=== PATIENT | female | born 1950 | race Caucasian/White ===

== ENCOUNTER 2016-08-20 08:13 | Emergency (ER) | payer MEDICARE, OTHER ==
[~2016-08-20] VITALS: Wt 78.0 kg
[2016-08-20] MEDS ORDERED: KETOROLAC 30 MG INJ IM STA (08:22)
[2016-08-20] MEDS ORDERED: TRAM50TA2 PO (08:24)
[2016-08-20] MEDS ORDERED: ACYC800T57 PO (08:24)
--- NOTE | 2016-08-20 08:41 | ERD ---
ER Documentation Chief Complaint Date/Time DATE: 08/20/16 TIME: 08:35 Chief Complaint SHINGLES TO LOWER LEG AREA HPI 66 yo female comes in with a rash to her right upper thigh 1 month. Patient states that she was treated with acyclovir, she took it for about a week and she finished it a week ago however she states that she has several new lesions on her right upper thigh. She also took [place] for pain. She describes as a burning pain localized. She denies any fevers or chills. ROS All systems reviewed and are negative except as per history of present illness. Medications Home Meds Active Scripts Acyclovir* (Zovirax*) 800 Mg Tablet, 800 MG PO 5 TIMES DAILY for 7 Days, TAB Prov:HANDY MAI PA-C 08/20/16 Tramadol HCl (Tramadol HCl) 50 Mg Tablet, 50 MG PO Q4 Y for PAIN, #20 TAB Prov:HANDY MAI PA-C 08/20/16 Physical Exam Vitals Vital Signs Date Time Temp Pulse Resp B/P Pulse Ox O2 Delivery O2 Flow Rate FiO2 08/20/16 08:15 98.0 85 18 172/78 99 Physical Exam General: Well-developed, well-nourished. The patient appears in no acute distress. HEENT: Head is normocephalic, atraumatic. No scleral icterus. Neck: Supple. Nontender. Lungs: Clear to auscultation. Normal air movement. Heart: Regular rate and rhythm. S1 and S2 are normal. No murmurs, gallops, or rubs. Abdomen: Nondistended. Extremities: No clubbing or cyanosis. Normal pulses. Moving extremities x 4. No weakness. Neurologic: Alert and oriented 3. No focal deficits. Skin: Erythematous flat lesions that is linear, there are scab-like there are new erythematous lesions that are just inferior Results 24 hrs Current Medications Medications (Trade) Dose Ordered Sig/Shalom Route PRN Reason Start Time Stop Time Status Last Admin Dose Admin Ketorolac Tromethamine (Toradol) 30 mg ONCE STAT IM 08/20/16 08:22 08/20/16 08:23 DC 08/20/16 08:26 Procedures/MDM 66-year-old female comes in with a rash to the upper thigh, there are flat lesions that are scabbed-like, likely from previous vesicular lesions. There are new lesions such as started several days ago just inferior to this, she will be given another week of acyclovir given the new lesion, there is no evidence of any abscess, cellulitis, [place], burn. Patient's blood pressure was elevated (>120/80) but appears stable without evidence of hypertension emergency or urgency. The patient was counseled about the risks of hypertension and urged to pursue outpatient monitoring and therapy within a week with their primary care physician. Departure Diagnosis: Primary Impression: Shingles Condition: Good Patient Instructions: Shingles (Herpes Zoster) Additional Instructions: Llame al doctor MAANA y lanie chary MAE PARA DENTRO DE 1-2 MOONEY.Dgale a la secretaria que nosotros le instruimos hacer esta mae.Avise o llame si torres condicin se empeora antes de la mae. Regresa aqui si peor o no mejor. HANDY MAI PA-C August 20, 2016 08:41
== END 2016-08-20 08:42 | disposition home or self-care (01) ==
LOC: FTE 08:13
DX: B02.9 Zoster without complications (principal)
CPT/HCPCS: 96372; 99284; J1885

== ENCOUNTER 2017-05-27 07:33 | Emergency (ER) | END 2017-05-27 17:21 | disposition home or self-care (01) ==

== ENCOUNTER 2017-09-07 11:20 | Inpatient (IN) | END 2017-09-11 18:30 | disposition home or self-care (01) | DRG 249 ==

== ENCOUNTER 2018-11-04 06:01 | Inpatient (IN) | payer MEDICARE, OTHER ==
[2018-11-04] VITALS (21 sets, daily range): BP systolic 76–148; BP diastolic 47–83; PULSE 66–89; RESP 8–28; Ht 149.9 cm; Wt 80.4 kg
[~2018-11-04] VITALS: Ht 149.9 cm; Wt 80.4 kg
[~2018-11-04 06:01] MED LIST: ASPI81TA52 PO; ATOR20TA38 PO; BENA10TA4 PO; CARV3.1260 PO; CEPH-442 PO; CILO100T PO; FAMO20TA18 PO; FURO-110 PO; GLIP10TA14 PO; LEVO50TA71 PO; METF500T24 PO; PREG150C PO; TICA90TA PO
[2018-11-04] MEDS ORDERED: ACETAMINOPHEN 500 MG TAB PO STA (06:48)
[2018-11-04] MEDS ORDERED: SOD CHLORIDE 0.45% 1,000 ML IV SCH (07:00)
[2018-11-04] MEDS ORDERED: DIAZEPAM 5 MG TAB PO ONE (07:00)
[2018-11-04] MEDS ORDERED: CEFAZOLIN 1 GM/50 ML (PMX) 50 ML IVPB ONE (07:00)
--- NOTE | 2018-11-04 07:07 | PREAC ---
Date/Time of Note Date/Time of Note DATE: 11/04/18 TIME: 07:05 Anesthesia Eval and Record Evaluation Time Pre-Procedure Interview DATE: 11/04/18 TIME: 07:05 Age 68 Sex female NPO: 8 hrs Preoperative diagnosis cardiomyopathy Planned procedure AICD Past Medical History Past Medical History: Includes Cardio: HTN, Dyslipidemia, CAD, PTCA/Stent, CHF, Other (cardiomyopathy; aortic stenosis moderate EF 15-20%) Endo: Diabetes GI: Obesity Heme: Anemia Surgery & Anesthesia Issues No known issue (stents x2) Meds Anticoagulation: No Beta Justin within 24 hr: Yes Active Scripts Cephalexin* (Keflex*) 250 Mg Capsule, 250 MG PO Q8 for 4 Days, #21 CAP Prov:SHANKAR CHILDERS MD 09/11/17 Famotidine* (Famotidine*) 20 Mg Tablet, 20 MG PO DAILY for 30 Days, TAB Prov:SHANKAR CHILDERS MD 09/11/17 Benazepril Hcl* (Benazepril Hcl*) 10 Mg Tablet, 10 MG PO BID for 30 Days, #60 TAB Prov:SHANKAR CHILDERS MD 09/11/17 Ticagrelor* (Brilinta*) 90 Mg Tablet, 90 MG PO BID for 30 Days, #60 TAB Prov:SHANKAR CHILDERS MD 09/11/17 Reported Medications Levothyroxine Sodium* (Levoxyl*) 50 Mcg Tablet, 50 MCG PO BEFORE BREAKFAST, #30 TAB 09/05/17 Atorvastatin Calcium* (Atorvastatin Calcium*) 20 Mg Tablet, 20 MG PO QHS, #30 TAB 09/05/17 Pregabalin* (Lyrica*) 150 Mg Capsule, 150 MG PO BID, CAP 09/05/17 Carvedilol* (Carvedilol*) 3.125 Mg Tablet, 3.125 MG PO BID, #60 TAB 18 Furosemide* (Lasix*) 20 Mg Tablet, 20 MG PO BID, TAB 09/05/17 Glipizide* (Glipizide*) 10 Mg Tablet, 10 MG PO AC BREAKFAST DINNER, TAB 09/05/17 Aspirin (Low Dose Aspirin) 81 Mg Tablet.dr, 81 MG PO DAILY, #30 TAB 09/05/17 Metformin Hcl* (Metformin Hcl*) 500 Mg Tablet, 500 MG PO WITH BREAKFAST DINNE, #60 TAB 09/05/17 Current Medications Sodium Chloride 1,000 ml @ 20 mls/hr Q24H IV ; Start 11/04/18 at 07:00 Cefazolin Sodium 50 ml @ 100 mls/hr MOBILE ARCHITECT ONCE IVPB ; Start 11/04/18 at 07:00; Stop 11/04/18 at 07:29 Meds reviewed: Yes Allergies Coded Allergies: No Known Allergy (Unverified , 11/03/18) Allergies Reviewed: Yes Labs/Studies Labs Reviewed: Reviewed by anesthesiologist Result Diagram: 11/04/18 0617 11/04/18 0617 Laboratory Tests 11/04/18 06:17 test: N/A Studies: ECG (SR, LBBB, St elevation) Pre-procedure Exam Last vitals Vital Signs Date Temp Pulse Resp B/P (MAP) Pulse Ox O2 O2 Flow FiO2 Time Delivery Rate 11/04/18 97.2 80 18 148/83 98 Room Air 06:49 (104) Airway: Adequate mouth opening, Adequate thyromental dist Mallampati: Mallampati II Teeth: Abnormal (dentures removed, edentulous) Lung: Normal Heart: Normal ASA Physical Status ASA physical status: 4 Emergency: None Planned Anesthetic General/MAC: MAC Pre-operative Attestations Prior to commencing anesthesia and surgery, the patient was re-evaluated, there was verification of: *The patient's identity *The results of appropriate recent lab work and preoperative vital signs *The above evaluation not changing prior to induction *Anesthetic plan, risk benefits, alternative and complications discussed with patient/family; questions answered; patient/family understands, accepts and wishes to proceed. Tick Eradicator used HOWIE ASENCIO Nov 04, 2018 07:07
[2018-11-04] MEDS ORDERED: PHENYLephrine (100 MCG/ML) 10ML SYG ONE (07:11)
[2018-11-04] MEDS ORDERED: EPINEPHrine 0.1 MG/ML SYG ONE (07:11)
[2018-11-04] MEDS ORDERED: FENTAnyl 50 MCG/ML VIAL ONE ×2 (07:11→07:35)
[2018-11-04] MEDS ORDERED: EPHEDrine 25 MG/5 ML SYG ONE (07:11)
[2018-11-04] MEDS ORDERED: BUPIVACAINE 0.5% (SDV) 30 ML INJ ONE (07:26)
[2018-11-04] MEDS ORDERED: LIDOCAINE 1%/EPI 30 ML INJ ONE (07:26)
[2018-11-04] MEDS ORDERED: IODIXANOL LOCM 50 ML BTL ONE ×2 (07:26→08:38)
[2018-11-04] MEDS ORDERED: SOD CHLORIDE 0.9% 500 ML ONE (07:26)
[2018-11-04] MEDS ORDERED: hydrALAzine 20 MG INJ IV PRN (07:30)
[2018-11-04] MEDS ORDERED: POLYMYXIN/BACITRACIN 1L IRRIG IRR ONE (07:30)
[2018-11-04] MEDS ORDERED: LABETALOL HCL 20MG INJ IV PRN (07:30)
[2018-11-04] MEDS ORDERED: ATROPINE 1 MG/10 ML SYRINGE IV PRN (07:30)
[2018-11-04] MEDS ORDERED: CEFAZOLIN 2 GM/50 ML (PMX) 50 ML IVPB ONE (07:30)
[2018-11-04] MEDS ORDERED: FENTAnyl 50 MCG/ML VIAL IV PRN (07:30)
[2018-11-04] MEDS ORDERED: ALBUTEROL 0.083% (NEB) 2.5 MG/3 ML AMP HHN PRN (07:30)
[2018-11-04] MEDS ORDERED: EPHEDrine 25 MG/5 ML SYG IV PRN (07:30)
[2018-11-04] MEDS ORDERED: DIPHENHYDRAMINE 50 MG INJ IV PRN (07:30)
--- NOTE | 2018-11-04 10:24 | PAC ---
Date/Time of Note Date/Time of Note DATE: 11/04/18 TIME: 10:23 Post-Anesthesia Notes Post-Anesthesia Note Last documented vital signs Vital Signs Date Temp Pulse Resp B/P Pulse Ox O2 O2 Flow FiO2 Time (MAP) Delivery Rate 11/04/18 97.2 99/7 80 88 18 18 148/83 98 100 Room 06:49 100 1 (104) 99 Air NC 2L Activity: WNL Respiratory function: WNL Cardiovascular function: WNL Mental status: Baseline Pain reasonably controlled: Yes Hydration appropriate: Yes Nausea/Vomiting absent: Yes HOWIE ASENCIO Nov 04, 2018 10:24
[2018-11-04] MEDS ORDERED: DEXTROSE 5%-0.45% NACL 1,000 ML IV SCH (10:52)
[2018-11-04] MEDS ORDERED: HYDROCODONE/APAP (5/325) TAB PO PRN (11:00)
[2018-11-04] MEDS ORDERED: MAGNESIUM HYDROXIDE 30ML CUP PO PRN (11:00)
[2018-11-04] MEDS ORDERED: ONDANSETRON 4 MG INJ IV PRN (11:00)
[2018-11-04] MEDS ORDERED: NACL 0.9% 3 ML SYG IV SCH (11:00)
[2018-11-04] MEDS ORDERED: ACETAMINOPHEN 325 MG TAB PO PRN (11:00)
--- NOTE | 2018-11-04 11:12 | QN ---
Documentation Comment PT SEEN AND EXAMINED SHANKAR CHILDERS MD Nov 04, 2018 11:12
--- NOTE | 2018-11-04 11:16 | SP ---
DATE OF PROCEDURE: 11/04/2018 REFERRING PHYSICIAN: Dr. Vasquez and Dr. Barry. REASON FOR IMPLANTATION: Ischemic cardiomyopathy with ejection fraction less than 30%, congestive he art failure with a class 2 heart failure on optimal medical management. There is no reversible disea se. The patient was referred to me for ICD implantation. The patient was seen in the office and the n scheduled for outpatient ICD. DESCRIPTION OF PROCEDURE: After discussion with the patient and family, she was brought in fas ting condition. Anesthesiologist supervised airway and sedation. The patient received Ancef prior t o the procedure. Left side of the chest was prepped and draped in a usual sterile fashion, 1% lidoca ine was placed for general analgesia. After the initial incision, we encountered some bleeding now. Attempts were made to stop the bleeding, which were initially successful. Upper extremity venogram was performed with IV contrast of 10 mL x2. Then, using modified Seldinger technique, subclavian vei n was cannulated. There was some kinking in the vein and we had to upgrade to the larger sheath. On ce appropriate of the large sheath. The wire went easily and was implanted into RV apex. It was act ively fixed. The lead was left inside the lead and sheath was peeled away. The lead was sutured to the muscle with 0 Vicryl Ethibond sutures. The lead was attached to the generator. At that point, I realized that there is some bleeding in the pocket which was continuous. I tried to locate the sour ce of the pocket after exploratory discovery, I was unable to duplicate a focal social bleeding and d ecision was made to close the pocket. At that time, estimated blood loss was probably 1 to 1.5 units . The patient appeared to be hemodynamically stable. I called Dr. Power for an opinion whether a surgical intervention is warranted, but after discussion with Dr. Power, it was felt that the b est course of action is just to close the pocket and allow it to tamponade by itself. The skin was c losed with multiple layers of 2-0 Vicryl sutures. Steri-Strips were placed on top of the incision. The patient remained on the cath table for optimization. At that point, she became hypotensive with blood pressure in the 70s. Rufus hampton was called, but the patient never lost control of the airway. She is saturating 100%. The course of bleeding was presumed to be in the pocket. Urgent blood trans fusion was requested. I put a central line in for right femoral vein and blood transfusion was initi ated. The patient appears to be stable at the moment. I discussed the situation with the family, th ey are aware that the patient had likely bleeding as a complication of her procedure. Currently, the plan is to transfer patient to ICU for monitoring. She is going to have stat laboratories to check her hemoglobin level with a blood transfusion and monitor expectantly. I will ask Dr. Power to s ee the patient again to see if she needs exploratory surgery to look for the source of bleeding. I a m still hopeful that it will tamponade by itself DEVICE INFORMATION: 1. The implanted device is a [employer] Fort[employer] VR device 1357 40 q. ICD. The RV lead is a [employer] lead burner helper #[id number], necessary lead #[id number]. Reference #[id number] 58 cm lead tracking #[id number]. 2. Acute threshold R-wave was 10 millivolts, threshold 1.0 volts at 0.5 msec, lead impedance 256. S hock impedance 62 ohms. The device was not tested. 3. Complications. See discussion above. Dictated By: PARVIZ DELCID MD ML/NTS Conf#: [id number] DID#: [id number] CC: JESUSITA VASQUEZ MD; SHIVAM BARRY MD;*End*
[2018-11-04] MEDS ORDERED: DEXTROSE 50% 50 ML SYRINGE IV PRN ×2 (11:30)
[2018-11-04] MEDS ORDERED: GLUCAGON 1 MG INJ IM PRN (11:30)
[2018-11-04] MEDS ORDERED: GLUCOSE GEL 15 GRAM TUBE BUCCAL PRN (11:30)
[2018-11-04] MEDS ORDERED: GLUCOSE GEL 15 GRAM TUBE PO PRN ×2 (11:30)
[2018-11-04] MEDS: INSULIN ASPART [NOVOLOG] 3 ML PEN SC SCH ×3 (12:56→20:53)
[2018-11-04] MEDS: SOD CHLORIDE 0.45% 1,000 ML IV SCH (13:05)
--- NOTE | 2018-11-04 15:06 | RADRPT ---
Vent Rate: 78 bpm RR Interval: 768 msec MN Interval: 167 msec QRS Duration: 164 msec QT Interval: 446 msec QTC Interval: 509 msec P-R-T [place]: 70 - -14 - 156 degrees Sinus rhythm...normal P axis, V-rate 50- 99 Left bundle branch block...QRSd>120, broad/notched R ST elevation secondary to IVCD...Multiple VCG criteria Electronically Signed By: Giacomo Gonzalez
--- NOTE | 2018-11-04 15:25 | RADRPT ---
Echocardiogram Report Patient Name: ANN HOYTPatient ID: [id number] : 1950 (68y 6m)Study Date: 11/04/2018 12:02:43 PM Gender: FAccession #: [id number] Tech: DianeLexi Guzman [facility] Location: 112 Ref.Physician: PARVIZ DELCID Height(Cm): BSA: Weight(Kg): Quality: AdequateOrder Physician: PARVIZ DELCID Account #: Procedures: Echocardiographic Report: Transthoracic echocardiogram with complete 2D, M-Mode, and doppler examination. Indications: post ICD low BP r/o effusion. Measurements: 2D/M Mode Doppler Measurement Value Normal Range Measurement Value Normal Range LVIDd 2D 3.7 [ 3.8 - 5.2 ] cm AV Peak Aj 1.6 [ 100.0 - 170.0 ] cm/sec LVIDs 2D 3.5 [ 2.2 - 3.5 ] cm AV Peak PG 10.0 [ 2.0 - 9.0 ] mmHg LVPWd 2D 1.2 [ 0.6 - 0.9 ] cm LVOT Peak Aj 0.9 [ 70.0 - 110.0 ] cm/sec IVSd 2D 1.3 [ 0.6 - 0.9 ] cm LVOT Peak PG 3.0 [ 2.0 - 6.0 ] mmHg AoR Diam 2D 2.8 [ 2.3 - 3.1 ] cm Lat E` Aj 0.1 [ 10.0 - 15.0 ] cm/sec EDV 2D 58.1 [ 46.0 - 106.0 ] ml ESV 2D 52.3 [ 14.0 - 42.0 ] ml EF 2D 10.0 [ 54.0 - 74.0 ] percent LA Dimen 2D 2.8 [ 2.7 - 3.8 ] cm Findings: Left Ventricle: Normal left ventricular cavity size. Mild concentric left ventricular hypertrophy. Moderate global left ventricular systolic dysfunction. Ejection fraction is visually estimated at 30 %. Right Ventricle: Normal right ventricular size. Normal right ventricular systolic function. Linear artifact in right ventricle suggestive of catheter, pacer lead, or ICD lead. Left Atrium: The left atrium is normal in size. Right Atrium: The right atrium is normal in size. Mitral Valve: Normal appearance and function of the mitral valve with trace physiologic regurgitation. Aortic Valve: No hemodynamically significant aortic stenosis by doppler. Aortic cusps appear mildly calcified. Mild aortic valve regurgitation. Tricuspid Valve: Normal appearance and function of the tricuspid valve with trace physiologic regurgitation. Normal right ventricular systolic pressure. Pulmonic Valve: Normal pulmonic valve appearance. Pericardium: Normal pericardium with no significant pericardial effusion. Aorta: Normal aortic root. IVC: Normal size and normal respiratory collapse consistent with normal right atrial pressure. Conclusions: Normal left ventricular cavity size. Mild concentric left ventricular hypertrophy. Moderate to severe global left ventricular systolic dysfunction. Ejection fraction is visually estimated at 30 %. Normal appearance and function of the mitral valve with trace physiologic regurgitation. No hemodynamically significant aortic stenosis by doppler. Aortic cusps appear mildly calcified. Mild aortic valve regurgitation. Normal appearance and function of the tricuspid valve with trace physiologic regurgitation. Normal right ventricular systolic pressure. Electronically Signed By: Abraham Vasquez 2018-11-04 15:25:13 PDT
--- NOTE | 2018-11-04 15:45 | HP ---
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 HISTORY OF PRESENTING ILLNESS: This is a 68-year-old female with a past medical history of diabetes, hypertension, hyperlipidemia, hypothyroidism, history of coronary artery disease, status post stenting of LAD and RCA in 08/2017. The patient was followed by Dr. Vasquez and Dr. Delcid as an outpatient. The patient's EF was 15% to 20% and was scheduled for AICD today. According to the family, the patient had aspirin and Brilinta. Yesterday, the patient went into procedure. Around 7:30 on admission, the blood pressure was 160s over 80s; however around 9:30, the blood pressure dropped to systolic of 80s. There was active bleeding seen. The patient received Tino-Synephrine, ephedrine. Central line was placed in the right groin by Dr. Delcid. The patient had 1200 mL of fluid and also received PRBCs x2 and was transferred to ICU. From there, blood pressure was 99/71. Currently, patient is awake, alert, oriented. Systolic blood pressure is in 100 and there is no active oozing noted on the AICD site. Hemoglobin had dropped from 10 to 8.1 at 9:25. At that time, she had received 2 units of blood. PAST MEDICAL HISTORY: 1. Diabetes. 2. Hypertension. 3. Hyperlipidemia. 4. Arthritis. 5. Hypothyroidism. ALLERGIES: NONE. MEDICATIONS TAKING AT HOME: 1. Aspirin 81. 2. Brilinta 90 b.i.d. 3. Cilostazol 50 b.i.d. 4. Keflex 20 q.8. 5. Atorvastatin 20. 6. Benazepril 10 b.i.d. 7. Coreg 3.125 b.i.d. 8. Lyrica 150 b.i.d. 9. Lasix 20 b.i.d. 10. Pepcid. 11. Glipizide 10 mg p.o. breakfast. 12. Levothyroxine 50. 13. Metformin 500 p.o. with breakfast and dinner. PAST SURGICAL HISTORY: The patient just had stenting of LAD and RCA in 2018. SOCIAL HISTORY: No history of smoking, alcohol or any drug use. Currently lives with family. REVIEW OF SYSTEMS: The patient denies any chest pain, any shortness of breath, any dizziness; completely awake, alert, oriented. Denies any abdominal pain, nausea, vomiting, diarrhea, headache, any blurry vision. Denies any focal neurological deficit. PHYSICAL EXAMINATION: VITAL SIGNS: Currently, blood pressure is 123/72, afebrile, pulse 89, respirations 16, saturating 99%. GENERAL: The patient is awake, alert, oriented, does not appear to be any acute distress. HEENT: Pupils are equal, round, reactive to light. NECK: Supple. HEART: Regular rate and rhythm. LUNGS: Clear to auscultate bilaterally. ABDOMEN: Soft, nontender, nondistended, positive normoactive bowel sounds. EXTREMITIES: No clubbing, cyanosis or edema. SKIN: The patient has some bruises. In left chest wall, the patient has compression banding; however, no active oozing seen. LABORATORY DATA: Hemoglobin of 10 at 6:17 and 8.1 on 9:25. BUN of 46, creatinine 1.52. INR of 0.89. DIAGNOSTIC DATA: Chest x-ray initial was negative. Mild cardiomegaly without congestive heart failure and repeat chest x-ray was done after the procedure that did not show much heart failure. ASSESSMENT AND PLAN: 1. This is a 68-year-old female status post code blue; however, the patient did not receive any CPR and was never intubated. The patient went into shock, likely secondary to hemorrhagic; however, now status post adequate fluid resuscitation and 2 units of blood. Hemoglobin had dropped from 10 to 8.1 and the patient has received 2 units of blood. Currently, the patient is hemodynamically stable. 2. Diabetes. 3. Hypertension. 4. Chronic kidney disease. 5. Hyperlipidemia. 6. Peripheral neuropathy. 7. 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 8. Peripheral neuropathy. 9. History of urinary tract infection. 10. History of congestive heart failure. PLAN: At this period of time, the patient is admitted to ICU. We will check stat H and H and we will check H and H q.6 hours. We will get 2 units of blood ready. Dr. Power has already been consulted by Dr. Delcid. He will come and evaluate the patient. Obviously, blood thinners will be on hold. The patient will be on n.p.o. We will continue the patient on insulin sliding scale. Rest of the treatment will depend on the patient's hospitalization course. Dictated By: SHANKAR GUERRIER/AASHISH Conf#: [id number] DID#: [id number] CC: NATALIE POWER MD; PARVIZ DELCID MD;*EndCC* MTDD
--- NOTE | 2018-11-04 17:38 | CONS ---
DATE OF ADMISSION: 11/04/2018 DATE OF CONSULTATION: 11/04/2018 REASON FOR CONSULTATION: Evaluation of left chest bleeding. HISTORY OF PRESENT ILLNESS: This is a 68-year-old female who underwent a defibrillator placement tod ay. Subsequently, she was found to have bleeding from the left chest. Her hemoglobin dropped from 1 0.1 to 8.1. She is now back up to 9.7 after blood transfusion, hemodynamically has been stable with blood pressure of 110/65, pulse is 69, respirations 18 and saturation is 100% on room air. Pressure dressing has been applied. PAST MEDICAL HISTORY: Hypertension, hyperlipidemia, peripheral vascular disease. PAST SURGICAL HISTORY: As above. ALLERGIES: NONE. SOCIAL HISTORY: No smoking, drinking or drug use. MEDICATION LIST: Reviewed. PHYSICAL EXAMINATION: VITAL SIGNS: Blood pressure is 118/60, pulse is 60, respirations 18. HEENT: Normocephalic, atraumatic, PERRLA. NECK: Supple. No JVD, no carotid bruits. CARDIOVASCULAR: Normal S1, S2. No murmurs, gallops or rubs. LUNGS: Clear to auscultation. ABDOMEN: Soft. EXTREMITIES: Warm. CHEST: Left chest wall has a pressure dressing over the newly placed defibrillator. EXTREMITIES: There is radial pulse. No signs of active bleeding. There are femoral pulses. No pop liteal or pedal pulses at the present time. Capillary refill is about 3 seconds. IMPRESSION: Left chest bleeding after defibrillator. RECOMMENDATIONS: We will monitor the hemoglobin level. Keep the pressure dressings applied. Monito r the left chest. I discuss with the referring physician. Dictated By: NATALIE CHÁVEZ MD FM/NTS Conf#: [id number] DID#: [id number] CC: SHANKAR CHILDERS; PARVIZ DELCID MD;*EndCC*
[2018-11-05] VITALS (24 sets, daily range): BP systolic 106–139; BP diastolic 54–78; PULSE 67–89; RESP 11–22
[2018-11-05] MEDS: INSULIN ASPART [NOVOLOG] 3 ML PEN SC SCH ×6 (01:00→21:11)
[2018-11-05] MEDS: ACCU-CHEK XX SCH ×6 (01:29→21:11)
[2018-11-05] MEDS ORDERED: ACCU-CHEK XX SCH (02:00)
[2018-11-05] MEDS: PANTOPRAZOLE (EC) 40 MG TAB PO SCH (05:12)
--- NOTE | 2018-11-05 11:01 | PN ---
Date/Time of Note Date/Time of Note DATE: 11/05/18 TIME: 10:53 Assessment/Plan VTE Prophylaxis Risk score (from Ns)>0 risk: 11 SCD applied (from Ns): Yes Pharmacological prophylaxis: NA/contraindicated Pharm contraindication: low risk/ambulating Lines/Catheters IV Catheter Type (from Nrs): Central Line Central line still needed: Yes Urinary Cath still in place: Yes Reason Cath still needed: urinary retention Assessment/Plan Assessment/Plan . This is a 68-year-old female 1status post code blue during the time of AICD placement; however, the patient did not receive any CPR and was never intubated. The patient went into shock during the procedure with the blood pressure dropped from systolic 170s to 80s, likely secondary to hemorrhagic; however, now status post adequate fluid resuscitation and 2 units of blood status post Tino-Synephrine and epi. Hemoglobin had dropped from 10 to 8.1 and the patient has received 2 units of blood. Currently, the patient is hemodynamically stable. Now with hematoma, hemoglobin has been stable 2. Diabetes. 3. Hypertension. 4. Chronic kidney disease. 5. Hyperlipidemia. 6. Peripheral neuropathy. 7. 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 8. Peripheral neuropathy. 9. History of urinary tract infection. 10. History of congestive heart failure. plan -Hemoglobin is stable today and patient is hemodynamically stable, pressure dressing was changed by Manager Finance -Start on 1800 ADA diet,spoke to Dr. Montemayor -Patient is better went to put back her on aspirin and Brilinta however patient had stents and is comp completed almost 1 year > does she need Brilinta? - ISS - Transfer to tele if okay with cardiology - resume some home meds Result Diagram: 11/05/18 0400 11/05/18 0400 Results 24hrs Laboratory Tests Test 11/04/18 11:20 11/04/18 12:51 11/04/18 17:20 11/04/18 18:26 Hemoglobin 9.7 L 10.2 L Hematocrit 29.2 L 30.5 L Bedside Glucose 222 H 110 Test 11/04/18 20:52 11/05/18 00:21 11/05/18 01:23 11/05/18 04:00 Bedside Glucose 118 138 Hemoglobin 10.0 L 9.9 L Hematocrit 29.6 L 30.3 L White Blood Count 8.4 # Red Blood Count 3.62 L Mean Corpuscular 83.7 Volume Mean Corpuscular 27.3 L Hemoglobin Mean Corpuscular 32.7 Hemoglobin Concent Red Cell 15.2 H Distribution Width Platelet Count 220 Mean Platelet 11.1 H Volume Immature 0.400 Granulocytes % Neutrophils % 68.4 Lymphocytes % 21.7 Monocytes % 7.2 Eosinophils % 1.7 Basophils % 0.6 Nucleated Red Blood 0.0 Cells % Immature 0.030 Granulocytes # Neutrophils # 5.7 Lymphocytes # 1.8 Monocytes # 0.6 Eosinophils # 0.1 Basophils # 0.1 Nucleated Red Blood 0.0 Cells # Sodium Level 139 Potassium Level 4.1 Chloride Level 110 Carbon Dioxide 23 Level Anion Gap 6 Blood Urea Nitrogen 31 #H Creatinine 1.13 H Est Glomerular 48 L Filtrat Rate mL/min Glucose Level 142 Calcium Level 8.4 Phosphorus Level 4.0 Magnesium Level 2.0 Test 11/05/18 04:27 11/05/18 05:12 11/05/18 08:04 Bedside Glucose 145 181 Lab Scanned Report BLOOD TRANSFUSION Subjective 24 Hr Interval Summary Free Text/Dictation Patient feels well. Globin stayed stable Pressure dressing was done today as has big hematoma under left armpit Exam/Review of Systems Exam Vitals Vital Signs Date Temp Pulse Resp B/P (MAP) Pulse Ox O2 O2 Flow FiO2 Time Delivery Rate 11/05/18 97.7 75 14 126/65 98 Room Air 08:00 (85) Intake and Output 11/04/18 11/04/18 11/05/18 1515:00 23:00 07:00 IntakeIntake Total 80 ml 120 ml 160 ml OutputOutput Total 500 ml 530 ml 515 ml BalanceBalance -420 ml -410 ml -355 ml Exam GENERAL: The patient is awake, alert, oriented, does not appear to be any acute distress. HEENT: Pupils are equal, round, reactive to light. NECK: Supple. HEART: Regular rate and rhythm. LUNGS: Clear to auscultate bilaterally. ABDOMEN: Soft, nontender, nondistended, positive normoactive bowel sounds. EXTREMITIES: No clubbing, cyanosis or edema. SKIN: The patient has some bruises. In left chest wall, the patient has compression banding; however, no active oozing seen. Hematoma Results Results 24hrs Laboratory Tests Test 11/04/18 11:20 11/04/18 12:51 11/04/18 17:20 11/04/18 18:26 Hemoglobin 9.7 L 10.2 L Hematocrit 29.2 L 30.5 L Bedside Glucose 222 H 110 Test 11/04/18 20:52 11/05/18 00:21 11/05/18 01:23 11/05/18 04:00 Bedside Glucose 118 138 Hemoglobin 10.0 L 9.9 L Hematocrit 29.6 L 30.3 L White Blood Count 8.4 # Red Blood Count 3.62 L Mean Corpuscular 83.7 Volume Mean Corpuscular 27.3 L Hemoglobin Mean Corpuscular 32.7 Hemoglobin Concent Red Cell 15.2 H Distribution Width Platelet Count 220 Mean Platelet 11.1 H Volume Immature 0.400 Granulocytes % Neutrophils % 68.4 Lymphocytes % 21.7 Monocytes % 7.2 Eosinophils % 1.7 Basophils % 0.6 Nucleated Red Blood 0.0 Cells % Immature 0.030 Granulocytes # Neutrophils # 5.7 Lymphocytes # 1.8 Monocytes # 0.6 Eosinophils # 0.1 Basophils # 0.1 Nucleated Red Blood 0.0 Cells # Sodium Level 139 Potassium Level 4.1 Chloride Level 110 Carbon Dioxide 23 Level Anion Gap 6 Blood Urea Nitrogen 31 #H Creatinine 1.13 H Est Glomerular 48 L Filtrat Rate mL/min Glucose Level 142 Calcium Level 8.4 Phosphorus Level 4.0 Magnesium Level 2.0 Test 11/05/18 04:27 11/05/18 05:12 11/05/18 08:04 Bedside Glucose 145 181 Lab Scanned Report BLOOD TRANSFUSION Medications Medication Current Medications IV Flush (NS 3 ml) 3 ml PER PROTOCOL IV ; Start 11/04/18 at 11:00 Ondansetron HCl (Zofran Inj) 4 mg Q6H PRN IV NAUSEA/VOMITING; Start 11/04/18 at 11:00 Acetaminophen (Tylenol Tab) 650 mg Q6H PRN PO .PAIN 1-3 OR TEMP; Start 11/04/18 at 11:00 Acetaminophen/ Hydrocodone Bitart ([place] (5/325)) 1 tab Q6H PRN PO .MOD PAIN 4- 6; Start 11/04/18 at 11:00 Magnesium Hydroxide (Milk Of Mag) 30 ml DAILY PRN PO .CONSTIPATION; Start 11/04/18 at 11:00 Pantoprazole (Protonix Tab) 40 mg DAILY@06 PO Last administered on 11/05/18at 05:12; Admin Dose 40 MG; Start 11/05/18 at 06:00 Diagnostic Test (Pha) (Accu-Chek) 1 ea Q4 XX Last administered on 11/05/18at 04:36; Admin Dose 1 EA; Start 11/05/18 at 02:00 Miscellaneous Information 1 ea NOTE XX ; Start 11/04/18 at 11:30 Glucose (Glutose) 15 gm Q15M PRN PO DECREASED GLUCOSE; Start 11/04/18 at 11:30 Glucose (Glutose) 22.5 gm Q15M PRN PO DECREASED GLUCOSE; Start 11/04/18 at 11:30 Dextrose (D50w Syringe) 25 ml Q15M PRN IV DECREASED GLUCOSE; Start 11/04/18 at 11:30 Dextrose (D50w Syringe) 50 ml Q15M PRN IV DECREASED GLUCOSE; Start 11/04/18 at 11:30 Glucagon (Glucagen) 1 mg Q15M PRN IM DECREASED GLUCOSE; Start 11/04/18 at 11:30 Glucose (Glutose) 15 gm Q15M PRN BUCCAL DECREASED GLUCOSE; Start 11/04/18 at 11:30 Sodium Chloride 1,000 ml @ 20 mls/hr Q24H IV Last administered on 11/04/18at 13:05; Admin Dose 20 MLS/HR; Start 11/04/18 at 13:30 Insulin Aspart (Novolog Insulin Pen) NOVOLOG *MILD* ALGORI... Q4 SC Last administered on 11/05/18at 08:21; Admin Dose 2 UNIT; Start 11/04/18 at 21:00 SHANKAR CHILDERS MD Nov 05, 2018 11:01
--- NOTE | 2018-11-05 11:09 | CONS ---
Assessment/Plan Assessment/Plan Hospital Course (Demo Recall) IMP: 1.POD#1 s/p ICD implant c/b bleeding 2. anemia requiring transfusions s/p x 2 yesterday 3.Cardiomyopathy-EF 30% by echo this admit 4. CHF-systolic chronic 5.HTN 6.HL 7. Renal insuff 8. PTCA/stent 09/16 with ELIAZAR to LAD/RCA Recc: -ICU but ok for tele if remains HD stable -Contineu lasix -Resume ACEI -Follow HGB closely -Hold asa/brilinta Consultation Date/Type/Reason Admit Date/Time Nov 04, 2018 at 10:56 Initial Consult Date 11/04/18 Type of Consult Cardiology Reason for Consultation cardiomyopathy s/p ICD Requesting Provider: SHANKAR CHILDERS MD Date/Time of Note DATE: 11/05/18 TIME: 11:03 Exam/Review of Systems Vital Signs Vitals Vital Signs Date Temp Pulse Resp B/P (MAP) Pulse Ox O2 O2 Flow FiO2 Time Delivery Rate 11/05/18 97.7 75 14 126/65 98 Room Air 08:00 (85) Intake and Output 11/04/18 11/04/18 11/05/18 1515:00 23:00 07:00 IntakeIntake Total 80 ml 120 ml 160 ml OutputOutput Total 500 ml 530 ml 515 ml BalanceBalance -420 ml -410 ml -355 ml Exam Exam Review of Systems: CONSTITUTIONAL: No fevers, chills. PULMONARY: No sob CARDIOVASCULAR:mild pain at ICD site GASTROINTESTINAL: No nausea/vomiting. GENITOURINARY: No hematuria/dysuria. MUSCULOSKELETAL: No myagias/arthalgias. PSYCHIATRIC: The patient denies depression. NEUROLOGIC: No weakness Constitutional: alert Psych: no complaints Head: normocephalic ENMT: mucosa pink and moist Neck: supple, jvd (9 cm water) Respiratory: clear to auscultation Cardiovascular: regular rate and rhythm, other (L upper chest covered by pressure dressing) Gastrointestinal: soft, non-tender Musculoskeletal: muscle tone (normal) Extremities: edema (none) Labs Result Diagram: 11/05/18 0400 11/05/18 0400 Results 24hrs Laboratory Tests Test 11/04/18 11:20 11/04/18 12:51 11/04/18 17:20 11/04/18 18:26 Hemoglobin 9.7 L 10.2 L Hematocrit 29.2 L 30.5 L Bedside Glucose 222 H 110 Test 11/04/18 20:52 11/05/18 00:21 11/05/18 01:23 11/05/18 04:00 Bedside Glucose 118 138 Hemoglobin 10.0 L 9.9 L Hematocrit 29.6 L 30.3 L White Blood Count 8.4 # Red Blood Count 3.62 L Mean Corpuscular 83.7 Volume Mean Corpuscular 27.3 L Hemoglobin Mean Corpuscular 32.7 Hemoglobin Concent Red Cell 15.2 H Distribution Width Platelet Count 220 Mean Platelet 11.1 H Volume Immature 0.400 Granulocytes % Neutrophils % 68.4 Lymphocytes % 21.7 Monocytes % 7.2 Eosinophils % 1.7 Basophils % 0.6 Nucleated Red Blood 0.0 Cells % Immature 0.030 Granulocytes # Neutrophils # 5.7 Lymphocytes # 1.8 Monocytes # 0.6 Eosinophils # 0.1 Basophils # 0.1 Nucleated Red Blood 0.0 Cells # Sodium Level 139 Potassium Level 4.1 Chloride Level 110 Carbon Dioxide 23 Level Anion Gap 6 Blood Urea Nitrogen 31 #H Creatinine 1.13 H Est Glomerular 48 L Filtrat Rate mL/min Glucose Level 142 Calcium Level 8.4 Phosphorus Level 4.0 Magnesium Level 2.0 Test 11/05/18 04:27 11/05/18 05:12 11/05/18 08:04 Bedside Glucose 145 181 Lab Scanned Report BLOOD TRANSFUSION Medications Medications Current Medications IV Flush (NS 3 ml) 3 ml PER PROTOCOL IV ; Start 11/04/18 at 11:00 Ondansetron HCl (Zofran Inj) 4 mg Q6H PRN IV NAUSEA/VOMITING; Start 11/04/18 at 11:00 Acetaminophen (Tylenol Tab) 650 mg Q6H PRN PO .PAIN 1-3 OR TEMP; Start 11/04/18 at 11:00 Acetaminophen/ Hydrocodone Bitart ([place] (5/325)) 1 tab Q6H PRN PO .MOD PAIN 4- 6; Start 11/04/18 at 11:00 Magnesium Hydroxide (Milk Of Mag) 30 ml DAILY PRN PO .CONSTIPATION; Start 11/04/18 at 11:00 Pantoprazole (Protonix Tab) 40 mg DAILY@06 PO Last administered on 11/05/18at 05:12; Admin Dose 40 MG; Start 11/05/18 at 06:00 Diagnostic Test (Pha) (Accu-Chek) 1 ea Q4 XX Last administered on 11/05/18at 04:36; Admin Dose 1 EA; Start 11/05/18 at 02:00 Miscellaneous Information 1 ea NOTE XX ; Start 11/04/18 at 11:30 Glucose (Glutose) 15 gm Q15M PRN PO DECREASED GLUCOSE; Start 11/04/18 at 11:30 Glucose (Glutose) 22.5 gm Q15M PRN PO DECREASED GLUCOSE; Start 11/04/18 at 11:30 Dextrose (D50w Syringe) 25 ml Q15M PRN IV DECREASED GLUCOSE; Start 11/04/18 at 11:30 Dextrose (D50w Syringe) 50 ml Q15M PRN IV DECREASED GLUCOSE; Start 11/04/18 at 11:30 Glucagon (Glucagen) 1 mg Q15M PRN IM DECREASED GLUCOSE; Start 11/04/18 at 11:30 Glucose (Glutose) 15 gm Q15M PRN BUCCAL DECREASED GLUCOSE; Start 11/04/18 at 11:30 Sodium Chloride 1,000 ml @ 20 mls/hr Q24H IV Last administered on 11/04/18at 13:05; Admin Dose 20 MLS/HR; Start 11/04/18 at 13:30 Insulin Aspart (Novolog Insulin Pen) NOVOLOG *MILD* ALGORI... Q4 SC Last administered on 11/05/18at 08:21; Admin Dose 2 UNIT; Start 11/04/18 at 21:00 Atorvastatin Calcium (Lipitor) 20 mg QHS PO ; Start 11/05/18 at 21:00; Status UNV Furosemide (Lasix) 20 mg BID PO ; Start 11/05/18 at 21:00; Status UNV Levothyroxine Sodium (Synthroid) 50 mcg BEFORE BREAKFAST PO ; Start 11/06/18 at 07:00; Status UNV Pregabalin (Lyrica) 150 mg BID PO ; Start 11/05/18 at 21:00; Status UNV JESUSITA DURON Nov 05, 2018 11:09
[2018-11-05] MEDS ORDERED: hydrALAzine 20 MG INJ IV PRN (11:30)
[2018-11-05] MEDS: PREGABALIN 75 MG CAP PO SCH ×2 (12:53→21:08)
[2018-11-05] MEDS: LEVOTHYROXINE 50 MCG TAB PO SCH (12:53)
[2018-11-05] MEDS: FUROSEMIDE 20 MG TAB PO SCH ×2 (12:54→19:49)
[2018-11-05] MEDS: SOD CHLORIDE 0.45% 1,000 ML IV SCH (12:58)
--- NOTE | 2018-11-05 14:27 | PN ---
Date/Time of Note Date/Time of Note DATE: 11/05/18 TIME: 14:26 Assessment/Plan Lines/Catheters IV Catheter Type (from Nrsg): Central Line [place] in Place (from Nrsg): Yes Assessment/Plan Assessment/Plan Status post defibrillator placement with pocket bleeding Patient hemodynamically stable with stable hemoglobin at 9.7 No signs of active bleeding Monitor the chest site and hemoglobin levels Subjective 24 Hr Interval Summary Constitutional: improved Pain Control: mild Exam/Review of Systems Vital Signs Vitals Vital Signs Date Temp Pulse Resp B/P (MAP) Pulse Ox O2 O2 Flow FiO2 Time Delivery Rate 11/05/18 97.8 75 13 125/69 97 Room Air 12:00 (87) Intake and Output 11/04/18 11/04/18 11/05/18 1515:00 23:00 07:00 IntakeIntake Total 80 ml 120 ml 160 ml OutputOutput Total 500 ml 530 ml 515 ml BalanceBalance -420 ml -410 ml -355 ml Exam Eyes: nl conjunctiva, EOMI, nl lids, nl sclera ENMT: nl external ears & nose, nl lips & teeth, nl nasal mucosa & septum, mucosa pink and moist Neck: supple, non-tender Respiratory: clear to auscultation, normal air movement Cardiovascular: regular rate and rhythm, nl pulses Gastrointestinal: soft, nl liver, spleen, non-tender Musculoskeletal: nl extremities to inspection, nl gait and stance Results Result Diagram: 11/05/18 1153 11/05/18 0400 NATALIE CHÁVEZ MD Nov 05, 2018 14:27
[2018-11-05] MEDS: ATORVASTATIN 20 MG TAB PO SCH (21:07)
[2018-11-06] MEDS: INSULIN ASPART [NOVOLOG] 3 ML PEN SC SCH ×6 (01:15→20:26)
[2018-11-06] MEDS: ACCU-CHEK XX SCH ×8 (01:16→21:00)
[2018-11-06 03:52] VITALS: BP 129/69; PULSE 88; RESP 20
[2018-11-06] MEDS: FUROSEMIDE 20 MG TAB PO SCH ×2 (05:21→17:19)
[2018-11-06] MEDS: PANTOPRAZOLE (EC) 40 MG TAB PO SCH (05:21)
[2018-11-06] MEDS: LEVOTHYROXINE 50 MCG TAB PO SCH (06:53)
[2018-11-06 07:39] VITALS: BP 131/62; PULSE 75; RESP 18
[2018-11-06] MEDS: PREGABALIN 75 MG CAP PO SCH ×2 (08:50→20:27)
--- NOTE | 2018-11-06 09:15 | CONS ---
Consultation Date/Type/Reason Admit Date/Time Nov 04, 2018 at 10:56 Initial Consult Date Requesting Provider: SHANKAR CHILDERS MD Date/Time of Note DATE: 11/06/18 TIME: 09:13 24 HR Interval Summary Free Text/Dictation Pt examined - VS stable - pressure dressing on. Advise to monitor another 24-48 hrs. Keep pressure dressing for d/c to see me in the office next week. Given hematoma, advise post-op anti-bx x 1 week (IV here, then po Keflex 500 mg po qid at home). Exam/Review of Systems Exam Vitals Vital Signs Date Temp Pulse Resp B/P (MAP) Pulse Ox O2 O2 Flow FiO2 Time Delivery Rate 11/06/18 98.7 75 18 131/62 94 Room Air 07:39 (85) Intake and Output 11/05/18 11/05/18 11/06/18 1515:00 23:00 07:00 IntakeIntake Total 340 ml 240 ml 150 ml OutputOutput Total 365 ml 355 ml 400 ml BalanceBalance -25 ml -115 ml -250 ml Results Result Diagram: 11/06/18 0544 11/06/18 0544 Results 24hrs Laboratory Tests Test 11/05/18 11:53 11/05/18 12:48 11/05/18 17:11 11/05/18 18:06 Hemoglobin 9.9 L 9.9 L Hematocrit 30.1 L 29.9 L Bedside Glucose 188 243 H Test 11/05/18 21:06 11/06/18 01:08 11/06/18 05:24 11/06/18 05:44 Bedside Glucose 200 233 H 211 White Blood Count 7.5 Red Blood Count 3.27 L Hemoglobin 9.1 L Hematocrit 27.8 L Mean Corpuscular Volume 85.0 Mean Corpuscular 27.8 L Hemoglobin Mean Corpuscular 32.7 Hemoglobin Concent Red Cell Distribution 15.3 H Width Platelet Count 208 Mean Platelet Volume 11.3 H Immature Granulocytes % 0.300 Neutrophils % 61.4 Lymphocytes % 26.2 Monocytes % 9.3 Eosinophils % 2.1 Basophils % 0.7 Nucleated Red Blood 0.0 Cells % Immature Granulocytes # 0.020 Neutrophils # 4.6 Lymphocytes # 2.0 Monocytes # 0.7 Eosinophils # 0.2 Basophils # 0.1 Nucleated Red Blood 0.0 Cells # Sodium Level 137 Potassium Level 4.0 Chloride Level 107 Carbon Dioxide Level 24 Anion Gap 6 Blood Urea Nitrogen 33 H Creatinine 1.18 H Est Glomerular Filtrat 46 L Rate mL/min Glucose Level 193 Calcium Level 8.6 Phosphorus Level 4.0 Magnesium Level 2.0 Total Bilirubin 0.4 Direct Bilirubin 0.00 Indirect Bilirubin 0.4 Aspartate Amino 21 Transf (AST/SGOT) Alanine 26 Aminotransferase (ALT/SG PT) Alkaline Phosphatase 75 Total Protein 6.2 Albumin 3.0 L Globulin 3.20 Albumin/Globulin Ratio 0.93 Test 11/06/18 07:58 Bedside Glucose 234 H Medications Medication Current Medications IV Flush (NS 3 ml) 3 ml PER PROTOCOL IV ; Start 11/04/18 at 11:00 Ondansetron HCl (Zofran Inj) 4 mg Q6H PRN IV NAUSEA/VOMITING; Start 11/04/18 at 11:00 Acetaminophen (Tylenol Tab) 650 mg Q6H PRN PO .PAIN 1-3 OR TEMP Last adminis tered on 11/06/18at 03:29; Admin Dose 650 MG; Start 11/04/18 at 11:00 Acetaminophen/ Hydrocodone Bitart ([place] (5/325)) 1 tab Q6H PRN PO .MOD PAIN 4- 6; Start 11/04/18 at 11:00 Magnesium Hydroxide (Milk Of Mag) 30 ml DAILY PRN PO .CONSTIPATION; Start 11/04/18 at 11:00 Pantoprazole (Protonix Tab) 40 mg DAILY@06 PO Last administered on 11/06/18at 05:21; Admin Dose 40 MG; Start 11/05/18 at 06:00 Diagnostic Test (Pha) (Accu-Chek) 1 ea Q4 XX Last administered on 11/06/18at 08:22; Admin Dose 1 EA; Start 11/05/18 at 02:00 Miscellaneous Information 1 ea NOTE XX ; Start 11/04/18 at 11:30 Glucose (Glutose) 15 gm Q15M PRN PO DECREASED GLUCOSE; Start 11/04/18 at 11:30 Glucose (Glutose) 22.5 gm Q15M PRN PO DECREASED GLUCOSE; Start 11/04/18 at 11:30 Dextrose (D50w Syringe) 25 ml Q15M PRN IV DECREASED GLUCOSE; Start 11/04/18 at 11:30 Dextrose (D50w Syringe) 50 ml Q15M PRN IV DECREASED GLUCOSE; Start 11/04/18 at 11:30 Glucagon (Glucagen) 1 mg Q15M PRN IM DECREASED GLUCOSE; Start 11/04/18 at 11:30 Glucose (Glutose) 15 gm Q15M PRN BUCCAL DECREASED GLUCOSE; Start 11/04/18 at 11:30 Insulin Aspart (Novolog Insulin Pen) NOVOLOG *MILD* ALGORI... Q4 SC Last administered on 11/06/18 08:14; Admin Dose 3 UNIT; Start 11/04/18 at 21:00 Atorvastatin Calcium (Lipitor) 20 mg QHS PO Last administered on 11/05/18at 21:07; Admin Dose 20 MG; Start 11/05/18 at 21:00 Furosemide (Lasix) 20 mg BID DIURETICS PO Last administered on 11/06/18at 05:21; Admin Dose 20 MG; Start 11/05/18 at 12:00 Levothyroxine Sodium (Synthroid) 50 mcg BEFORE BREAKFAST PO Last administered on 11/06/18at 06:53; Admin Dose 50 MCG; Start 11/05/18 at 13:00 Pregabalin (Lyrica) 150 mg BID PO Last administered on 11/06/18 08:50; Admin Dose 150 MG; Start 11/05/18 at 13:00 Hydralazine HCl (Apresoline) 10 mg Q4H PRN IV SBP>170; Start 11/05/18 at 11:30 Cefazolin Sodium 50 ml @ 100 mls/hr Q12 IVPB ; Start 11/06/18 at 09:00; Status PARVIZ BRIDGES MD Nov 06, 2018 09:15
[2018-11-06] MEDS: CEFAZOLIN 1 GM/50 ML (PMX) 50 ML IVPB SCH ×2 (10:02→20:07)
--- NOTE | 2018-11-06 10:30 | PN ---
Date/Time of Note Date/Time of Note DATE: 11/06/18 TIME: 10:30 Assessment/Plan VTE Prophylaxis Risk score (from Ns)>0 risk: 3 SCD applied (from Ns): Yes Pharmacological prophylaxis: NA/contraindicated Pharm contraindication: low risk/ambulating Lines/Catheters IV Catheter Type (from Nrs): Saline Lock Urinary Cath still in place: Yes Reason Cath still needed: urinary retention Assessment/Plan Assessment/Plan Assessment/Plan . This is a 68-year-old female 1 status post code blue during the time of AICD placement; however, the patient did not receive any CPR and was never intubated. The patient went into shock during the procedure with the blood pressure dropped from systolic 170s to 80s, likely secondary to hemorrhagic; however, now status post adequate fluid resuscitation and 2 units of blood status post Tino-Synephrine and epi. Hemoglobin had dropped from 10 to 8.1 and the patient has received 2 units of blood. Currently, the patient is hemodynamically stable. Now with hematoma, hemoglobin has been stable 2. Diabetes. 3. Hypertension. 4. Chronic kidney disease. 5. Hyperlipidemia. 6. Peripheral neuropathy. 7. 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 8. Peripheral neuropathy. 9. History of urinary tract infection. 10. History of congestive heart failure. plan -Hemoglobin is stable today and patient is hemodynamically stable -Carb controlled diet hemoglobin has been stable -We will continue with IV antibiotics per cards -Anticoagulation aspirin/Brilinta per cardiology -ambulate /DC [place] DC central line - cw statin /levothyroxine/Lasix/PPI -Per cardiology will monitor 1 more day Case management to arrange for home health follow-up likely DC tomorrow Result Diagram: 11/06/18 0544 11/06/18 0544 Results 24hrs Laboratory Tests Test 11/05/18 11:53 11/05/18 12:48 11/05/18 17:11 11/05/18 18:06 Hemoglobin 9.9 L 9.9 L Hematocrit 30.1 L 29.9 L Bedside Glucose 188 243 H Test 11/05/18 21:06 11/06/18 01:08 11/06/18 05:24 11/06/18 05:44 Bedside Glucose 200 233 H 211 White Blood Count 7.5 Red Blood Count 3.27 L Hemoglobin 9.1 L Hematocrit 27.8 L Mean Corpuscular Volume 85.0 Mean Corpuscular 27.8 L Hemoglobin Mean Corpuscular 32.7 Hemoglobin Concent Red Cell Distribution 15.3 H Width Platelet Count 208 Mean Platelet Volume 11.3 H Immature Granulocytes % 0.300 Neutrophils % 61.4 Lymphocytes % 26.2 Monocytes % 9.3 Eosinophils % 2.1 Basophils % 0.7 Nucleated Red Blood 0.0 Cells % Immature Granulocytes # 0.020 Neutrophils # 4.6 Lymphocytes # 2.0 Monocytes # 0.7 Eosinophils # 0.2 Basophils # 0.1 Nucleated Red Blood 0.0 Cells # Sodium Level 137 Potassium Level 4.0 Chloride Level 107 Carbon Dioxide Level 24 Anion Gap 6 Blood Urea Nitrogen 33 H Creatinine 1.18 H Est Glomerular Filtrat 46 L Rate mL/min Glucose Level 193 Calcium Level 8.6 Phosphorus Level 4.0 Magnesium Level 2.0 Total Bilirubin 0.4 Direct Bilirubin 0.00 Indirect Bilirubin 0.4 Aspartate Amino 21 Transf (AST/SGOT) Alanine 26 Aminotransferase (ALT/SG PT) Alkaline Phosphatase 75 Total Protein 6.2 Albumin 3.0 L Globulin 3.20 Albumin/Globulin Ratio 0.93 Test 11/06/18 07:58 Bedside Glucose 234 H Subjective 24 Hr Interval Summary Free Text/Dictation Feels better today Globin has been stable Exam/Review of Systems Exam Vitals Vital Signs Date Temp Pulse Resp B/P (MAP) Pulse Ox O2 O2 Flow FiO2 Time Delivery Rate 11/06/18 98.7 75 18 131/62 94 Room Air 07:39 (85) Intake and Output 11/05/18 11/05/18 11/06/18 1515:00 23:00 07:00 IntakeIntake Total 340 ml 240 ml 150 ml OutputOutput Total 365 ml 355 ml 400 ml BalanceBalance -25 ml -115 ml -250 ml Exam GENERAL: The patient is awake, alert, oriented, does not appear to be any acute distress. HEENT: Pupils are equal, round, reactive to light. NECK: Supple. HEART: Regular rate and rhythm. LUNGS: Clear to auscultate bilaterally. ABDOMEN: Soft, nontender, nondistended, positive normoactive bowel sounds. EXTREMITIES: No clubbing, cyanosis or edema. SKIN: The patient has some bruises. In left chest wall, the patient has compression banding; however, no active oozing seen. Hematoma Results Results 24hrs Laboratory Tests Test 11/05/18 11:53 11/05/18 12:48 11/05/18 17:11 11/05/18 18:06 Hemoglobin 9.9 L 9.9 L Hematocrit 30.1 L 29.9 L Bedside Glucose 188 243 H Test 11/05/18 21:06 11/06/18 01:08 11/06/18 05:24 11/06/18 05:44 Bedside Glucose 200 233 H 211 White Blood Count 7.5 Red Blood Count 3.27 L Hemoglobin 9.1 L Hematocrit 27.8 L Mean Corpuscular Volume 85.0 Mean Corpuscular 27.8 L Hemoglobin Mean Corpuscular 32.7 Hemoglobin Concent Red Cell Distribution 15.3 H Width Platelet Count 208 Mean Platelet Volume 11.3 H Immature Granulocytes % 0.300 Neutrophils % 61.4 Lymphocytes % 26.2 Monocytes % 9.3 Eosinophils % 2.1 Basophils % 0.7 Nucleated Red Blood 0.0 Cells % Immature Granulocytes # 0.020 Neutrophils # 4.6 Lymphocytes # 2.0 Monocytes # 0.7 Eosinophils # 0.2 Basophils # 0.1 Nucleated Red Blood 0.0 Cells # Sodium Level 137 Potassium Level 4.0 Chloride Level 107 Carbon Dioxide Level 24 Anion Gap 6 Blood Urea Nitrogen 33 H Creatinine 1.18 H Est Glomerular Filtrat 46 L Rate mL/min Glucose Level 193 Calcium Level 8.6 Phosphorus Level 4.0 Magnesium Level 2.0 Total Bilirubin 0.4 Direct Bilirubin 0.00 Indirect Bilirubin 0.4 Aspartate Amino 21 Transf (AST/SGOT) Alanine 26 Aminotransferase (ALT/SG PT) Alkaline Phosphatase 75 Total Protein 6.2 Albumin 3.0 L Globulin 3.20 Albumin/Globulin Ratio 0.93 Test 11/06/18 07:58 Bedside Glucose 234 H Medications Medication Current Medications IV Flush (NS 3 ml) 3 ml PER PROTOCOL IV ; Start 11/04/18 at 11:00 Ondansetron HCl (Zofran Inj) 4 mg Q6H PRN IV NAUSEA/VOMITING; Start 11/04/18 at 11:00 Acetaminophen (Tylenol Tab) 650 mg Q6H PRN PO .PAIN 1-3 OR TEMP Last admi nistered on 11/06/18at 03:29; Admin Dose 650 MG; Start 11/04/18 at 11:00 Acetaminophen/ Hydrocodone Bitart ([place] (5/325)) 1 tab Q6H PRN PO .MOD PAIN 4- 6; Start 11/04/18 at 11:00 Magnesium Hydroxide (Milk Of Mag) 30 ml DAILY PRN PO .CONSTIPATION; Start 11/04/18 at 11:00 Pantoprazole (Protonix Tab) 40 mg DAILY@06 PO Last administered on 11/06/18 05:21; Admin Dose 40 MG; Start 11/05/18 at 06:00 Diagnostic Test (Pha) (Accu-Chek) 1 ea Q4 XX Last administered on 11/06/18 08:22; Admin Dose 1 EA; Start 11/05/18 at 02:00 Miscellaneous Information 1 ea NOTE XX ; Start 11/04/18 at 11:30 Glucose (Glutose) 15 gm Q15M PRN PO DECREASED GLUCOSE; Start 11/04/18 at 11:30 Glucose (Glutose) 22.5 gm Q15M PRN PO DECREASED GLUCOSE; Start 11/04/18 at 11:30 Dextrose (D50w Syringe) 25 ml Q15M PRN IV DECREASED GLUCOSE; Start 11/04/18 at 11:30 Dextrose (D50w Syringe) 50 ml Q15M PRN IV DECREASED GLUCOSE; Start 11/04/18 at 11:30 Glucagon (Glucagen) 1 mg Q15M PRN IM DECREASED GLUCOSE; Start 11/04/18 at 11:30 Glucose (Glutose) 15 gm Q15M PRN BUCCAL DECREASED GLUCOSE; Start 11/04/18 at 11:30 Insulin Aspart (Novolog Insulin Pen) NOVOLOG *MILD* ALGORI... Q4 SC Last administered on 11/06/18 08:14; Admin Dose 3 UNIT; Start 11/04/18 at 21:00 Atorvastatin Calcium (Lipitor) 20 mg QHS PO Last administered on 11/05/18 21:0 7; Admin Dose 20 MG; Start 11/05/18 at 21:00 Furosemide (Lasix) 20 mg BID DIURETICS PO Last administered on 11/06/18 05:21; Admin Dose 20 MG; Start 11/05/18 at 12:00 Levothyroxine Sodium (Synthroid) 50 mcg BEFORE BREAKFAST PO Last administered on 11/06/18 06:53; Admin Dose 50 MCG; Start 11/05/18 at 13:00 Pregabalin (Lyrica) 150 mg BID PO Last administered on 11/06/18at 08:50; Admin Dose 150 MG; Start 11/05/18 at 13:00 Hydralazine HCl (Apresoline) 10 mg Q4H PRN IV SBP>170; Start 11/05/18 at 11:30 Cefazolin Sodium 50 ml @ 100 mls/hr Q12 IVPB Last administered on 11/06/18at 10:02; Admin Dose 100 MLS/HR; Start 11/06/18 at 09:00 SHANKAR CHILDERS MD Nov 06, 2018 10:30
[2018-11-06 11:37] VITALS: BP 126/60; PULSE 79; RESP 18
--- NOTE | 2018-11-06 13:51 | CONS ---
Assessment/Plan Assessment/Plan Hospital Course (Demo Recall) IMP: 1.POD#2 s/p ICD implant c/b bleeding 2. anemia requiring transfusions s/p x 2 yesterday-stable today 3.Cardiomyopathy-EF 30% by echo this admit 4. CHF-systolic chronic 5.HTN 6.HL 7. Renal insuff 8. PTCA/stent 09/16 with EL[facility]ZAR to LAD/RCA Recc: -Tele -Contineu lasix -Resume ACEI -Follow HGB closely -Hold asa/brilinta -Contineu abx prophylaxis -will follow in house 1 additional day to assure stability Consultation Date/Type/Reason Admit Date/Time Nov 04, 2018 at 10:56 Initial Consult Date 11/04/18 Type of Consult Cardiology Reason for Consultation cardiomyopathy/ICD Requesting Provider: SHANKAR CHILDERS MD Date/Time of Note DATE: 11/06/18 TIME: 13:49 Exam/Review of Systems Vital Signs Vitals Vital Signs Date Temp Pulse Resp B/P (MAP) Pulse Ox O2 O2 Flow FiO2 Time Delivery Rate 11/06/18 98.7 79 18 126/60 98 Room Air 11:37 (82) Intake and Output 11/05/18 11/05/18 11/06/18 1515:00 23:00 07:00 IntakeIntake Total 340 ml 240 ml 150 ml OutputOutput Total 365 ml 355 ml 400 ml BalanceBalance -25 ml -115 ml -250 ml Exam Exam Review of Systems: CONSTITUTIONAL: No fevers, chills. PULMONARY: No sob CARDIOVASCULAR: mild pain at pacer site GASTROINTESTINAL: No nausea/vomiting. GENITOURINARY: No hematuria/dysuria. MUSCULOSKELETAL: No myagias/arthalgias. PSYCHIATRIC: The patient denies depression. NEUROLOGIC: No weakness Constitutional: alert Psych: no complaints Head: normocephalic ENMT: mucosa pink and moist Neck: supple, jvd (9 cm water) Respiratory: diminished breath sounds (at bases/B) Cardiovascular: regular rate and rhythm, other (L upper chest covered by pressure dressing) Gastrointestinal: soft, non-tender Musculoskeletal: muscle tone (normal) Extremities: edema (none) Labs Result Diagram: 11/06/18 0544 11/06/18 0544 Results 24hrs Laboratory Tests Test 11/05/18 17:11 11/05/18 18:06 11/05/18 21:06 11/06/18 01:08 Bedside Glucose 243 H 200 233 H Hemoglobin 9.9 L Hematocrit 29.9 L Test 11/06/18 05:24 11/06/18 05:44 11/06/18 07:58 11/06/18 11:20 Bedside Glucose 211 234 H 309 H White Blood Count 7.5 Red Blood Count 3.27 L Hemoglobin 9.1 L Hematocrit 27.8 L Mean Corpuscular Volume 85.0 Mean Corpuscular 27.8 L Hemoglobin Mean Corpuscular 32.7 Hemoglobin Concent Red Cell Distribution 15.3 H Width Platelet Count 208 Mean Platelet Volume 11.3 H Immature Granulocytes % 0.300 Neutrophils % 61.4 Lymphocytes % 26.2 Monocytes % 9.3 Eosinophils % 2.1 Basophils % 0.7 Nucleated Red Blood 0.0 Cells % Immature Granulocytes # 0.020 Neutrophils # 4.6 Lymphocytes # 2.0 Monocytes # 0.7 Eosinophils # 0.2 Basophils # 0.1 Nucleated Red Blood 0.0 Cells # Sodium Level 137 Potassium Level 4.0 Chloride Level 107 Carbon Dioxide Level 24 Anion Gap 6 Blood Urea Nitrogen 33 H Creatinine 1.18 H Est Glomerular Filtrat 46 L Rate mL/min Glucose Level 193 Calcium Level 8.6 Phosphorus Level 4.0 Magnesium Level 2.0 Total Bilirubin 0.4 Direct Bilirubin 0.00 Indirect Bilirubin 0.4 Aspartate Amino 21 Transf (AST/SGOT) Alanine 26 Aminotransferase (ALT/SG PT) Alkaline Phosphatase 75 Total Protein 6.2 Albumin 3.0 L Globulin 3.20 Albumin/Globulin Ratio 0.93 Medications Medications Current Medications IV Flush (NS 3 ml) 3 ml PER PROTOCOL IV ; Start 11/04/18 at 11:00 Ondansetron HCl (Zofran Inj) 4 mg Q6H PRN IV NAUSEA/VOMITING; Start 11/04/18 at 11:00 Acetaminophen (Tylenol Tab) 650 mg Q6H PRN PO .PAIN 1-3 OR TEMP Last administered on 11/06/18at 03:29; Admin Dose 650 MG; Start 11/04/18 at 11:00 Acetaminophen/ Hydrocodone Bitart ([place] (5/325)) 1 tab Q6H PRN PO .MOD PAIN 4- 6; Start 11/04/18 at 11:00 Magnesium Hydroxide (Milk Of Mag) 30 ml DAILY PRN PO .CONSTIPATION; Start 11/04/18 at 11:00 Pantoprazole (Protonix Tab) 40 mg DAILY@06 PO Last administered on 11/06/18 05:21; Admin Dose 40 MG; Start 11/05/18 at 06:00 Diagnostic Test (Pha) (Accu-Chek) 1 ea Q4 XX Last administered on 11/06/18at 11:59; Admin Dose 1 EA; Start 11/05/18 at 02:00 Miscellaneous Information 1 ea NOTE XX ; Start 11/04/18 at 11:30 Glucose (Glutose) 15 gm Q15M PRN PO DECREASED GLUCOSE; Start 11/04/18 at 11:30 Glucose (Glutose) 22.5 gm Q15M PRN PO DECREASED GLUCOSE; Start 11/04/18 at 11:30 Dextrose (D50w Syringe) 25 ml Q15M PRN IV DECREASED GLUCOSE; Start 11/04/18 at 11:30 Dextrose (D50w Syringe) 50 ml Q15M PRN IV DECREASED GLUCOSE; Start 11/04/18 at 11:30 Glucagon (Glucagen) 1 mg Q15M PRN IM DECREASED GLUCOSE; Start 11/04/18 at 11:30 Glucose (Glutose) 15 gm Q15M PRN BUCCAL DECREASED GLUCOSE; Start 11/04/18 at 11:30 Insulin Aspart (Novolog Insulin Pen) NOVOLOG *MILD* ALGORI... Q4 SC Last administered on 11/06/18at 12:04; Admin Dose 5 UNIT; Start 11/04/18 at 21:00 Atorvastatin Calcium (Lipitor) 20 mg QHS PO Last administered on 11/05/18at 21:07; Admin Dose 20 MG; Start 11/05/18 at 21:00 Furosemide (Lasix) 20 mg BID DIURETICS PO Last administered on 11/06/18 05:21; Admin Dose 20 MG; Start 11/05/18 at 12:00 Levothyroxine Sodium (Synthroid) 50 mcg BEFORE BREAKFAST PO Last administered on 11/06/18 06:53; Admin Dose 50 MCG; Start 11/05/18 at 13:00 Pregabalin (Lyrica) 150 mg BID PO Last administered on 11/06/18 08:50; Admin Dose 150 MG; Start 11/05/18 at 13:00 Hydralazine HCl (Apresoline) 10 mg Q4H PRN IV SBP>170; Start 11/05/18 at 11:30 Cefazolin Sodium 50 ml @ 100 mls/hr Q12 IVPB Last administered on 11/06/18at 10:02; Admin Dose 100 MLS/HR; Start 11/06/18 at 09:00 Glipizide (Glucotrol) 10 mg AC BREAKFAST DINNER PO ; Start 11/06/18 at 17:25; Status UNV Diagnostic Test (Pha) (Accu-Chek) 1 ea AC MEALS AND BEDTIME XX ; Start 11/06/18 at 17:25 Insulin Glargine (Lantus) 10 units DAILY@2000 SC ; Start 11/06/18 at 20:00 JESUSITA DURON Nov 06, 2018 13:51
[2018-11-06 15:56] VITALS: BP 144/67; PULSE 78; RESP 18
[2018-11-06] MEDS ORDERED: glipiZIDE 10 MG TAB PO SCH (17:25)
[2018-11-06 19:58] VITALS: BP 151/74; PULSE 83; RESP 19
[2018-11-06] MEDS ORDERED: INSULIN GLARGINE [LANTus] (100 UNITS/ML) SYG SC SCH (20:00)
[2018-11-06] MEDS: ATORVASTATIN 20 MG TAB PO SCH (20:07)
[2018-11-06] MEDS: BENAZEPRIL 10 MG TAB PO SCH (20:08)
[2018-11-07] VITALS: BP 120/63; PULSE 80; RESP 19
[2018-11-07] MEDS: INSULIN ASPART [NOVOLOG] 3 ML PEN SC SCH ×5 (01:14→17:19)
[2018-11-07] MEDS: ACCU-CHEK XX SCH ×6 (01:17→17:25)
[2018-11-07 04:00] VITALS: BP 109/59; PULSE 79; RESP 18
[2018-11-07] MEDS: FUROSEMIDE 20 MG TAB PO SCH ×2 (06:00→18:00)
[2018-11-07] MEDS: PANTOPRAZOLE (EC) 40 MG TAB PO SCH (06:00)
[2018-11-07] MEDS: LEVOTHYROXINE 50 MCG TAB PO SCH (06:01)
[2018-11-07 07:37] VITALS: BP 130/64; PULSE 78; RESP 20
[2018-11-07] MEDS: CEFAZOLIN 1 GM/50 ML (PMX) 50 ML IVPB SCH (08:51)
[2018-11-07] MEDS: PREGABALIN 75 MG CAP PO SCH (08:52)
[2018-11-07] MEDS: BENAZEPRIL 10 MG TAB PO SCH (08:52)
[2018-11-07 11:06] VITALS: BP 118/63; PULSE 80; RESP 20
--- NOTE | 2018-11-07 14:40 | CONS ---
Assessment/Plan Assessment/Plan Hospital Course (Demo Recall) IMP: 1.POD#3 s/p ICD implant c/b bleeding 2. anemia requiring transfusions s/p x 2 yesterday-stable today 3.Cardiomyopathy-EF 30% by echo this admit 4. CHF-systolic chronic 5.HTN 6.HL 7. Renal insuff 8. PTCA/stent 09/16 with EL[facility]AR to LAD/RCA Recc: -Tele -Contineu lasix -Continue ACEI and resume BB -Follow HGB closely -Hold asa/brilinta and will resume when see in clinic after resolution of hem atoma -Contineu abx prophylaxis at d/c x 5 days total -F/U wound check 7-10 days in office Consultation Date/Type/Reason Admit Date/Time Nov 04, 2018 at 10:56 Initial Consult Date 11/04/18 Type of Consult Cardiology Reason for Consultation Cardiomyopathy Requesting Provider: SHANKAR CHILDERS MD Date/Time of Note DATE: 11/07/18 TIME: 14:37 Exam/Review of Systems Vital Signs Vitals Vital Signs Date Temp Pulse Resp B/P (MAP) Pulse Ox O2 O2 Flow FiO2 Time Delivery Rate 11/07/18 97.4 80 20 118/63 97 Room Air 11:06 (81) Intake and Output 11/06/18 11/06/18 11/07/18 1515:00 23:00 07:00 IntakeIntake Total 850 ml 120 ml BalanceBalance 850 ml 120 ml Exam Exam Review of Systems: CONSTITUTIONAL: No fevers, chills. PULMONARY: No sob CARDIOVASCULAR: No chest pain/palpitations GASTROINTESTINAL: No nausea/vomiting. GENITOURINARY: No hematuria/dysuria. MUSCULOSKELETAL: No myagias/arthalgias. PSYCHIATRIC: The patient denies depression. NEUROLOGIC: No weakness Constitutional: alert Psych: no complaints Head: normocephalic ENMT: mucosa pink and moist Neck: supple, jvd (9 cm water) Respiratory: diminished breath sounds (at bases/B) Cardiovascular: regular rate and rhythm, other (L chest covered by pressure dressing) Gastrointestinal: soft, non-tender Musculoskeletal: muscle weakness (generalized) Extremities: edema (none) Neurological: other (no focal deficits) Labs Result Diagram: 11/07/18 0545 11/07/18 0545 Results 24hrs Laboratory Tests Test 11/06/18 16:15 11/06/18 20:13 11/07/18 01:04 11/07/18 05:03 Bedside Glucose 252 H 319 H 251 H 220 Test 11/07/18 05:45 11/07/18 07:51 11/07/18 08:54 11/07/18 11:40 White Blood Count 7.6 Red Blood Count 3.25 L Hemoglobin 9.0 L Hematocrit 27.5 L Mean Corpuscular Volume 84.6 Mean Corpuscular 27.7 L Hemoglobin Mean Corpuscular 32.7 Hemoglobin Concent Red Cell Distribution 15.1 H Width Platelet Count 205 Mean Platelet Volume 11.1 H Immature Granulocytes % 0.300 Neutrophils % 61.2 Lymphocytes % 26.6 Monocytes % 8.1 Eosinophils % 3.3 Basophils % 0.5 Nucleated Red Blood 0.0 Cells % Immature Granulocytes # 0.020 Neutrophils # 4.7 Lymphocytes # 2.0 Monocytes # 0.6 Eosinophils # 0.3 Basophils # 0.0 Nucleated Red Blood 0.0 Cells # Sodium Level 137 Potassium Level 4.1 Chloride Level 108 Carbon Dioxide Level 23 Anion Gap 6 Blood Urea Nitrogen 35 H Creatinine 1.16 H Est Glomerular Filtrat 47 L Rate mL/min Glucose Level 210 Calcium Level 8.7 Phosphorus Level 4.1 Magnesium Level 2.0 Bedside Glucose 199 311 H 348 H Medications Medications Current Medications IV Flush (NS 3 ml) 3 ml PER PROTOCOL IV ; Start 11/04/18 at 11:00 Ondansetron HCl (Zofran Inj) 4 mg Q6H PRN IV NAUSEA/VOMITING; Start 11/04/18 at 11:00 Acetaminophen (Tylenol Tab) 650 mg Q6H PRN PO .PAIN 1-3 OR TEMP Last administered on 11/06/18at 03:29; Admin Dose 650 MG; Start 11/04/18 at 11:00 Acetaminophen/ Hydrocodone Bitart ([place] (5/325)) 1 tab Q6H PRN PO .MOD PAIN 4- 6; Start 11/04/18 at 11:00 Magnesium Hydroxide (Milk Of Mag) 30 ml DAILY PRN PO .CONSTIPATION; Start 11/04/18 at 11:00 Pantoprazole (Protonix Tab) 40 mg DAILY@06 PO Last administered on 11/07/18at 06:00; Admin Dose 40 MG; Start 11/05/18 at 06:00 Miscellaneous Information 1 ea NOTE XX ; Start 11/04/18 at 11:30 Glucose (Glutose) 15 gm Q15M PRN PO DECREASED GLUCOSE; Start 11/04/18 at 11:30 Glucose (Glutose) 22.5 gm Q15M PRN PO DECREASED GLUCOSE; Start 11/04/18 at 11:30 Dextrose (D50w Syringe) 25 ml Q15M PRN IV DECREASED GLUCOSE; Start 11/04/18 at 11:30 Dextrose (D50w Syringe) 50 ml Q15M PRN IV DECREASED GLUCOSE; Start 11/04/18 at 11:30 Glucagon (Glucagen) 1 mg Q15M PRN IM DECREASED GLUCOSE; Start 11/04/18 at 11:30 Glucose (Glutose) 15 gm Q15M PRN BUCCAL DECREASED GLUCOSE; Start 11/04/18 at 11:30 Insulin Aspart (Novolog Insulin Pen) NOVOLOG *MILD* ALGORI... Q4 SC Last administered on 11/07/18 12:16; Admin Dose 5 UNIT; Start 11/04/18 at 21:00 Atorvastatin Calcium (Lipitor) 20 mg QHS PO Last administered on 11/06/18 20:07; Admin Dose 20 MG; Start 11/05/18 at 21:00 Furosemide (Lasix) 20 mg BID DIURETICS PO Last administered on 11/07/18 06:00; Admin Dose 20 MG; Start 11/05/18 at 12:00 Levothyroxine Sodium (Synthroid) 50 mcg BEFORE BREAKFAST PO Last administered on 11/07/18 06:01; Admin Dose 50 MCG; Start 11/05/18 at 13:00 Pregabalin (Lyrica) 150 mg BID PO Last administered on 11/07/18 08:52; Admin Dose 150 MG; Start 11/05/18 at 13:00 Hydralazine HCl (Apresoline) 10 mg Q4H PRN IV SBP>170; Start 11/05/18 at 11:30 Cefazolin Sodium 50 ml @ 100 mls/hr Q12 IVPB Last administered on 11/07/18 08:51; Admin Dose 100 MLS/HR; Start 11/06/18 at 09:00 Diagnostic Test (Pha) (Accu-Chek) 1 ea AC MEALS AND BEDTIME XX Last adminis tered on 11/07/18at 11:20; Admin Dose 1 EA; Start 11/06/18 at 17:25 Insulin Glargine (Lantus) 10 units DAILY@2000 SC Last administered on 11/06/18at 20:16; Admin Dose 10 UNITS; Start 11/06/18 at 20:00 Benazepril HCl (Lotensin) 10 mg BID PO Last administered on 11/07/18at 08:52; Admin Dose 10 MG; Start 11/06/18 at 21:00 Diagnostic Test (Pha) (Accu-Chek) 1 ea AC MEALS AND BEDTIME XX ; Start 11/07/18 at 17:25 JESUSITA DURON Nov 07, 2018 14:40
[2018-11-07 15:03] VITALS: BP 140/71; PULSE 76; RESP 20
--- NOTE | 2018-11-07 16:11 | PDOCDIS ---
Discharge Instructions DIAGNOSIS Discharge Diagnosis s/p ICD placement CONDITION [id number] Patient Condition: [id number] Stable HOME CARE INSTRUCTIONS: [id number] Diet Instructions: [id number] y Rest between Activity Avoid heavy lifting FOLLOW UP/APPOINTMENTS Follow-up Plan Dr Vasquez cardiology 1 week -PCP 1 week ALESIA SMITH NP Nov 07, 2018 16:11
--- NOTE | 2018-11-07 16:20 | DS ---
Date/Time of Note Date/Time of Note DATE: 11/07/18 TIME: 16:20 Discharge Summary Admission/Discharge Info Admit Date/Time Nov 04, 2018 at 10:56 Discharge Date/Time Discharge Diagnosis s/p ICD placement Consults Dr Power, vascular surgeon, Dr Godfrey, cardiology Procedures ICD placement Hospital Course HISTORY OF PRESENTING ILLNESS: This is a 68-year-old female with a past medical history of diabetes, hypertension, hyperlipidemia, hypothyroidism, history of coronary artery disease, status post stenting of LAD and RCA stent in 08/2017. The patient was followed by Dr. Vasquez and Dr. Godfrey as an outpatient. The patient's EF was 15% to 20% and was scheduled for AICD today. According to the family, the patient had aspirin and Brilinta. Yesterday, the patient went into procedure. Around 7:30 on admission, the blood pressure was 160s over 80s; however around 9:30, the blood pressure dropped to systolic of 80s. There was active bleeding seen. The patient received Tino-Synephrine, ephedrine. Central line was placed in the right groin by Dr. Godfrey. The patient had 1200 mL of fluid and also received PRBCs x2 and was transferred to ICU. From there, blood pressure was 99/71. Currently, patient is awake, alert, oriented. Systolic blood pressure is in 100 and there is no active oozing noted on the AICD site. Hemoglobin had dropped from 10 to 8.1 at 9:25. At that time, she had received 2 units of blood. PAST MEDICAL HISTORY: 1. Diabetes. 2. Hypertension. 3. Hyperlipidemia. 4. Arthritis. 5. Hypothyroidism. Admission diagnoses: 1. status post code blue during the time of AICD placement; however, the patient did not receive any CPR and was never intubated. The patient went into shock during the procedure with the blood pressure dropped from systolic 170s to 80s, likely secondary to hemorrhagic; however, now status post adequate fluid resuscitation and 2 units of blood status post Tino-Synephrine and epi. Hemoglobin had dropped from 10 to 8.1 and the patient has received 2 units of blood. Currently, the patient is hemodynamically stable. Now with hematoma, hemoglobin has been stable 2. Diabetes. 3. Hypertension. 4. Chronic kidney disease. 5. Hyperlipidemia. 6. Peripheral neuropathy. 7. 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 8. Peripheral neuropathy. 9. History of urinary tract infection. 10. History of congestive heart failure. During elective ICD placement pt developed active bleeding in defibrillator pocket and developed a hemorrhagic shock. She was resuscitated with IV fluids and was given 2 units of PRBC, She was on neosynephrine drip. At this period of time, the patient was admitted to ICU. Her H and H was checked q.[address] Power, vascular surgeon has been consulted by Dr. Godfrey. He recommended to close the ICD surgical packet and let bleeding stop under the tamponade. Blood thinners was on hold. The patient was continued on insulin sliding scale. Hemoglobin was stable after transfusion and patient was hemodynamically stable. She was advanced to carb. controlled diet. Antibiotics was continued per cardiology consult. Pain was controlled. Patient is clinically improved. Patient was able to tolerate carb control diet, was able to ambulate, and does not require an additional oxygenation. Plan of care was discussed with Dr. Childers. In stable condition patient was discharged. Patient was instructed to continue designated medications, but hold Brilinta and Aspirin until sees Dr Godfrey. Patient was instructed also to see primary care provider in 1 week. All questions were answered and all problems were addressed. Home Meds Active Scripts Cephalexin* (Keflex*) 250 Mg Capsule, 250 MG PO Q8 for 7 Days, #21 CAP Prov:ALESIA SMITH NP 11/07/18 Famotidine* (Famotidine*) 20 Mg Tablet, 20 MG PO DAILY for 30 Days, TAB Prov:SHANKAR CHILDERS MD 09/11/17 Benazepril Hcl* (Benazepril Hcl*) 10 Mg Tablet, 10 MG PO BID for 30 Days, #60 TAB Prov:SHANKAR CHILDERS MD 09/11/17 Reported Medications Cilostazol* (Cilostazol*) 100 Mg Tablet, 50 MG PO BID, TAB 11/04/18 Levothyroxine Sodium* (Levoxyl*) 50 Mcg Tablet, 50 MCG PO BEFORE BREAKFAST, #30 TAB 09/05/17 Atorvastatin Calcium* (Atorvastatin Calcium*) 20 Mg Tablet, 20 MG PO QHS, #30 TAB 09/05/17 Pregabalin* (Lyrica*) 150 Mg Capsule, 150 MG PO BID, CAP 09/05/17 Carvedilol* (Carvedilol*) 3.125 Mg Tablet, 3.125 MG PO BID, #60 TAB 09/05/17 Furosemide* (Lasix*) 20 Mg Tablet, 20 MG PO BID, TAB 09/05/17 Glipizide* (Glipizide*) 10 Mg Tablet, 10 MG PO AC BREAKFAST DINNER, TAB 09/05/17 Metformin Hcl* (Metformin Hcl*) 500 Mg Tablet, 500 MG PO WITH BREAKFAST DINNE, #60 TAB 09/05/17 Discontinued Reported Medications Aspirin (Low Dose Aspirin) 81 Mg Tablet.dr, 81 MG PO DAILY, #30 TAB 09/05/17 Discontinued Scripts Ticagrelor* (Brilinta*) 90 Mg Tablet, 90 MG PO BID for 30 Days, #60 TAB Prov:SHANKAR CHILDERS MD 09/11/17 Follow-up Plan Dr Vasquez cardiology 1 week -PCP 1 week Primary Care Provider Not On Staff Doctor Time spent on discharge: < 30 minutes Pending Labs Laboratory Tests Test 11/06/18 20:13 11/07/18 01:04 11/07/18 05:03 11/07/18 05:45 Bedside 319 251 220 Glucose mg/dL (70-220) mg/dL (70-220) mg/dL (70-220) White Blood 7.6 Count 10^3/ul (4.8-1 0.8) Red Blood 3.25 Count 10^6/ul (4.20- 5.40) Hemoglobin 9.0 g/dl (12.0-16. 0) Hematocrit 27.5 % (37.0-47.0) Mean 84.6 Corpuscular fl (82.0-101.0 Volume ) Mean 27.7 Corpuscular pg (29.0-33.0) Hemoglobin Mean 32.7 Corpuscular g/dl (32.0-37. Hemoglobin Conc 0) ent Red Cell 15.1 Distribution % (11.5-14.5) Width Platelet Count 205 10^3/UL (140-4 15) Mean Platelet 11.1 Volume fl (7.4-10.4) Immature 0.300 Granulocytes % % (0.001-0.429 ) Neutrophils % 61.2 % (39.0-77.0) Lymphocytes % 26.6 % (15.0-51.0) Monocytes % 8.1 % (0.0-11.0) Eosinophils % 3.3 % (0.0-7.0) Basophils % 0.5 % (0.0-2.0) Nucleated Red 0.0 Blood Cells % /100WBC (0.0-0 .0) Immature 0.020 Granulocytes # 10^3/ul (0.0-0 .031) Neutrophils # 4.7 10^3/ul (1.6-7 .5) Lymphocytes # 2.0 10^3/ul (0.8-2 .9) Monocytes # 0.6 10^3/ul (0.3-0 .9) Eosinophils # 0.3 10^3/ul (0.0-0 .5) Basophils # 0.0 10^3/ul (0.0-0 .1) Nucleated Red 0.0 Blood Cells # 10^3/ul (0.0-0 .0) Sodium Level 137 mmol/L (135-14 4) Potassium 4.1 Level mmol/L (3.5-5. 1) Chloride Level 108 mmol/L (97-110 ) Carbon Dioxide 23 Level mmol/L (21-31) Anion Gap 6 (5-13) Blood Urea 35 Nitrogen mg/dl (7-20) Creatinine 1.16 mg/dl (0.44-1. 00) Est Glomerular 47 Filtrat mL/min (>60) Rate mL/min Glucose Level 210 mg/dl (70-220) Calcium Level 8.7 mg/dl (8.4-10. 2) Phosphorus 4.1 Level mg/dl (2.5-4.9 ) Magnesium 2.0 Level mg/dl (1.7-2.5 ) Test 11/07/18 07:51 11/07/18 08:54 11/07/18 11:40 Bedside 199 311 348 Glucose mg/dL (70-220) mg/dL (70-220) mg/dL (70-220) ALESIA SMITH NP Nov 07, 2018 16:20
[2018-11-07] MEDS ORDERED: ACCU-CHEK XX SCH (17:25)
== END 2018-11-07 19:00 | disposition home or self-care (01) | DRG 226 ==
LOC: SDS 06:01 → ICU 10:15 → SDS 10:56 → TEL 11-05 22:40
PROVIDERS: ADMIT Internal Medicine; ATTEND Internal Medicine Clinical Cardiac Electrophysiology
PROC: 02HK3KZ Insertion of Defibrillator Lead into Right Ventricle, Percutaneous Approach (ICD-10-PCS; 2018-11-04)
PROC: 06HY33Z Insertion of Infusion Device into Lower Vein, Percutaneous Approach (ICD-10-PCS; 2018-11-04)
PROC: 30233N1 Transfusion of Nonautologous Red Blood Cells into Peripheral Vein, Percutaneous Approach (ICD-10-PCS; 2018-11-04)
PROC: 0JH608Z Insertion of Defibrillator Generator into Chest Subcutaneous Tissue and Fascia, Open Approach (ICD-10-PCS; principal; 2018-11-04 07:30)
DX: I25.5 Ischemic cardiomyopathy (principal); T81.19XA Other postprocedural shock, initial encounter; I50.22 Chronic systolic (congestive) heart failure; D62 Acute posthemorrhagic anemia; I13.0 Hypertensive heart and chronic kidney disease with heart failure and stage 1 through stage 4 chronic kidney disease, or unspecified chronic kidney disease; L76.02 Intraoperative hemorrhage and hematoma of skin and subcutaneous tissue complicating other procedure; E11.42 Type 2 diabetes mellitus with diabetic polyneuropathy; E11.22 Type 2 diabetes mellitus with diabetic chronic kidney disease; E78.5 Hyperlipidemia, unspecified; I25.10 Atherosclerotic heart disease of native coronary artery without angina pectoris; E66.9 Obesity, unspecified; N18.9 Chronic kidney disease, unspecified; E03.9 Hypothyroidism, unspecified; M19.90 Unspecified osteoarthritis, unspecified site; Y83.8 Other surgical procedures as the cause of abnormal reaction of the patient, or of later complication, without mention of misadventure at the time of the procedure; Z79.02 Long term (current) use of antithrombotics/antiplatelets; Z79.82 Long term (current) use of aspirin; Z95.5 Presence of coronary angioplasty implant and graft; Z68.35 Body mass index [BMI] 35.0-35.9, adult
CPT/HCPCS: 33249; 36430; 71045; 80048; 80053; 80061; 82962; 83735; 84100; 85014; 85018; 85025; 85610; 85730; 86850; 86900; 86901; 86920; 87081; 93005; 93306; 93922; 93931; C1722; C1777; J0171; J0690; J1815; J2370; J3010; J7040; J7042; P9016; Q9967